=== PATIENT | female | born 1995 | race American Indian/Alaskan Native ===

== ENCOUNTER 2016-05-17 16:08 | Outpatient (CLI) | payer OTHER ==
[2016-05-17 16:35] LABS: Hemoglobin 13.6 gm/dl (10.1-14.3); Mean Corpuscular HGB Conc 33 % (30-34); Mean Corpuscular Hemoglobin 30 pg (28-32); Mean Corpuscular Volume 91 fl (79-97); Platelet Count 337 K/mm3 (140-440); Red Blood Count 4.49 M/mm3 (3.65-5.03); Red Cell Distribution Width 14.4 % (13.2-15.2); White Blood Count 8.4 K/mm3 (4.5-11.0)
[2016-05-17 16:57] LABS: Alanine Aminotransferase 9 units/L (7-56); Albumin 4.7 g/dL (3.9-5); Albumin/Globulin Ratio 1.2 %; Alkaline Phosphatase 48 units/L (35-129); Anion Gap 19 mmol/L; Bilirubin,Total 0.5 mg/dL (0.1-1.2); Blood Urea Nitrogen 9 mg/dL (7-17); Calcium 9.1 mg/dL (8.4-10.2); Carbon Dioxide 24 mmol/L (22-30); Chloride 101.9 mmol/L (98-107); Glucose 116 mg/dL (65-100); Potassium 3.6 mmol/L (3.6-5.0); Sodium 141 mmol/L (137-145); Total Protein 8.6 g/dL (6.3-8.2)
[2016-05-20 07:48] LABS: Vitamin D, 25-OH, Total 11 ng/mL (30-100)
== END 2016-05-17 16:09 | disposition home or self-care (01) ==
LOC: LAB 16:08
PROVIDERS: ATTEND Clinical Nurse Specialist Psychiatric/Mental Health
DX: F33.2 Major depressive disorder, recurrent severe without psychotic features (principal)
CPT/HCPCS: 36415; 80053; 82306; 84443; 85027; 86592